=== PATIENT | female | born 1965 | race Caucasian/White ===

== ENCOUNTER 2017-05-30 12:08 | Emergency (ER) | payer OTHER ==
[~2017-05-30] VITALS: Ht 167.6 cm; Wt 92.8 kg
[~2017-05-30 12:08] MED LIST: AMOX875T3 PO; ASPCH81X PO; CITA40TA4 PO; CLR10 PO; FLUT0.0529 NAE; INSDGI SC; INSUINJ14 SC; LEVO137T3 PO; LISI-729 PO; METF-384 PO; MONT1TAB5 PO; POLY3350 PO
[2017-05-30 12:12] VITALS: TEMP 36.7; Ht 167.6 cm; Wt 92.8 kg
[2017-05-30] MEDS ORDERED: INSDGIPEN SC (12:50)
[2017-05-30] MEDS ORDERED: NVLGI/PEN SC (12:50)
--- NOTE | 2017-05-30 12:57 | DIAGNOSTIC IMAGING REPORT ---
HEAD WITHOUT CONTRAST (CT) CLINICAL HISTORY: 52 years-old Female presenting with headaches, nose bleed, pt concern for mass d/t family hx. TECHNIQUE: Multidetector CT imaging of the head was performed without the use of intravenous contrast. IV contrast: None. A dose lowering technique was used consistent with the principles of ALARA (as low as reasonably achievable). COMPARISON: 04/19/2015. CT DOSE (mGy.cm): The estimated cumulative dose is 537.48 mGy.cm. 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 Ventricles and sulci normal in size. Focal hypoattenuation at the left frontal horn, unchanged from prior and likely chronic small vessel ischemic change. No mass effect or midline shift. No hemorrhage or acute territorial infarct. No extra-axial fluid collection. Paranasal sinuses and mastoid air cells clear. Calvarium intact. IMPRESSION: 1. No acute intracranial pathology. Electronically signed by: Herb El M.D. 05/30/2017 12:55 PM Dictated Date/Time: 05/30/2017 12:53 PM
--- NOTE | 2017-05-30 13:33 | EMERGENCY ROOM VISIT NOTE ---
History First contact with patient: 12:16 Chief Complaint: NOSE BLEED (MINOR) Stated Complaint: SEVERE NOSEBLEED W/BLOOD CLOT History of Present Illness The patient is a 52 year old female who presents to the Emergency Room with complaints of a nosebleed which resolved prior to arrival. The patient states that she was at work today and developed bleeding from the right nostril. She tilted her head back and the bleeding resolved, but she does state that she swallowed a blood clot. She denies any history of nosebleeds. She does not take any blood thinners. She denies any recent trauma to the nose. She does report she has seasonal allergies. The patient is concerned because her brother recently due to brain cancer and she is concerned that this nosebleed may be indicative of a brain tumor. Review of Systems A complete 10 point review of systems was reviewed with the patient with pertinent positives and negatives as per history of present illness. All else were negative. Past Medical/Surgical History Medical Problems: (1) Chronic Sinusitis Nos (2) Concussion (3) Diab Kelle Wo Compl, Type Ii Or Unspec Type, Not Uncntrld (4) Hx-Antibiot Allergy Nec (5) Hypothyroidism Nos (6) Pure Hypercholesterolem Family History FHx: diabetes mellitus Social History Smoking Status: Never Smoker Current/Historical Medications Scheduled Aspirin (Aspirin Chewable), 81 MG PO DAILY Citalopram (Citalopram Hydrobromide), 40 MG PO DAILY Insulin Aspart (Novolog Flexpen), 1 DOSE SC UD Insulin Glargine (Lantus Solostar), 46 UNITS SC QAM Levothyroxine Sodium (Levothyroxine Sodium), 137 MCG PO DAILY Lisinopril (Zestril), 5 MG PO DAILY Metformin Hcl (Glucophage), 1,000 MG PO BIDM Montelukast Sodium (Montelukast Sodium), 10 MG PO DAILY Physical Exam Vital Signs Date Time Temp Pulse Resp B/P (MAP) Pulse Ox O2 Delivery O2 Flow Rate FiO2 05/30/17 13:46 85 16 140/90 97 05/30/17 12:12 36.7 70 20 146/87 97 Room Air Physical Exam VITALS: Vitals are noted on the nurse's note and reviewed by myself. Vital signs stable. GENERAL: This is a 52-year-old female, in no acute distress, nondiaphoretic, well-developed well-nourished. SKIN: The skin was without rashes. HEAD: Normocephalic atraumatic. EARS: External auditory canals clear, tympanic membranes pearly lopez without erythema or effusion bilaterally. EYES: Pupils equal round and reactive to light and accommodation. Extraocular movements intact. NOSE: The nasal mucosa of the right nostril is slightly friable and erythematous. There is no active bleeding. MOUTH: Mucous membranes moist. No blood in the posterior oropharynx. NECK: Supple without nuchal rigidity. No lymphadenopathy. HEART: Regular rate and rhythm without murmurs gallops or rubs. LUNGS: Clear to auscultation bilaterally without wheezes, rales or rhonchi. NEURO: Patient was alert and oriented to person place and time. Medical Decision & Procedures ER Provider Diagnostic Interpretation: HEAD WITHOUT CONTRAST (CT) CLINICAL HISTORY: 52 years-old Female presenting with headaches, nose bleed, pt concern for mass d/t family hx. TECHNIQUE: Multidetector CT imaging of the head was performed without the use of intravenous contrast. IV contrast: None. A dose lowering technique was used consistent with the principles of ALARA (as low as reasonably achievable). COMPARISON: 04/19/2015. CT DOSE (mGy.cm): The estimated cumulative dose is 537.48 mGy.cm. 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 Ventricles and sulci normal in size. Focal hypoattenuation at the left frontal horn, unchanged from prior and likely chronic small vessel ischemic change. No mass effect or midline shift. No hemorrhage or acute territorial infarct. No extra-axial fluid collection. Paranasal sinuses and mastoid air cells clear. Calvarium intact. IMPRESSION: 1. No acute intracranial pathology. Medical Decision Differential diagnosis includes anterior epistaxis, posterior epistaxis, thrombocytopenia, malignancy, among others. The patient was evaluated as above. She presents with resolved epistaxis. The patient was very concerned that she could possibly have a brain tumor due to her family history of brain cancer. I did not feel this was likely given the patient's presentation, however I did discuss benefit/risk of performing a CT scan with the patient and she preferred to have a CT scan to make sure there were no brain masses. Noncontrast CT of the head was performed and read by radiology with no acute findings. Patient was reassured. I discussed using saline sprays and humidifier to prevent nosebleeds. She was encouraged to follow-up with her primary care provider. She verbalized understanding of my assessment and treatment plan and was discharged home in good condition. Medication Reconcilliation Current Medication List: was personally reviewed by me Blood Pressure Screening Patient's blood pressure: Elevated blood pressure Blood pressure disposition: Elevated BP felt to be situational Impression Primary Impression: Epistaxis Departure Information Dispostion Home / Self-Care Condition GOOD Referrals Mathew Ayon M.D. (PCP) Patient Instructions ED Nosebleed, My [facility] Additional Instructions You have been treated in the Emergency Department today for your Nose Bleed ( Epistaxis). Do NOT blow your nose for the next few days. This can result in recurrence of your nosebleed. You should consider using a humidifier to help moisten the air and decrease instances of nosebleeds. You can use [id number] saline nasal sprays to help moisten the nasal mucosa and decrease instances of nosebleeds. You may also apply Vaseline to the inside of the nostril to help moisten the mucosa. If you have another nosebleed, use 2 squirts of Afrin in the nostril then applied a nasal clip for at least 15 minutes. If your nosebleed persists, come to the emergency department. As with any trip to the Emergency Department, you should follow-up with your Primary Care Provider from today's visit. Return to the emergency department if your symptoms persist despite treatment plan outlined above or if the following symptoms occur: uncontrollable nosebleed , dizziness, lightheadedness, pre-syncope, or re-bleed.
[2017-05-30 13:46] VITALS: BP 140/90; PULSE 85; O2SAT 97
== END 2017-05-30 13:47 | disposition home or self-care (01) ==
LOC: C.EDB 12:09 → C.EDD 13:47
DX: R04.0 Epistaxis (principal); Z80.9 Family history of malignant neoplasm, unspecified; E11.9 Type 2 diabetes mellitus without complications; E03.9 Hypothyroidism, unspecified; E78.00 Pure hypercholesterolemia, unspecified; Z83.3 Family history of diabetes mellitus; Z79.82 Long term (current) use of aspirin; Z79.4 Long term (current) use of insulin; Z79.899 Other long term (current) drug therapy

== ENCOUNTER 2017-06-27 21:23 | Emergency (ER) | payer OTHER ==
[~2017-06-27] VITALS: Ht 167.6 cm; Wt 94.3 kg
[~2017-06-27 21:23] MED LIST changes: -AMOX875T3 PO; -CLR10 PO; -FLUT0.0529 NAE; -INSDGI SC; +INSDGIPEN SC; -INSUINJ14 SC; +NVLGI/PEN SC; -POLY3350 PO
[2017-06-27 21:28] VITALS: Ht 167.6 cm; Wt 94.3 kg
[2017-06-27] MEDS ORDERED: MULT-215 PO (21:48)
[2017-06-27] MEDS ORDERED: TURM500T PO (21:48)
[2017-06-27] MEDS ORDERED: OMEG10007 PO (21:48)
--- NOTE | 2017-06-27 22:18 | DIAGNOSTIC IMAGING REPORT ---
L SHOULDER MIN 2 VIEWS ROUTINE CLINICAL HISTORY: Left shoulder pain x3 weeks. COMPARISON: None FINDINGS: Alignment of the left shoulder is anatomic. No acute fracture or suspicious osseous lesion is present. There is deformity of the distal left clavicle which suggests an old, healed fracture. Minimal osteoarthritis of the left acromioclavicular joint is present. IMPRESSION: 1. No acute fracture or dislocation of the left shoulder. 2. Mild osteoarthritis of the left acromioclavicular joint. Electronically signed by: Cory Lo M.D. 06/27/2017 10:17 PM Dictated Date/Time: 06/27/2017 10:16 PM
[2017-06-27] MEDS ORDERED: DIPHTHERIA/TETANUS/PERTUSSIS 0.5 ML SYR/VIAL IM. ONE (23:00)
[2017-06-27] MEDS ORDERED: PRED20TA2 PO (23:07)
[2017-06-27 23:09] VITALS: BP 144/88; PULSE 68; TEMP 36.8; O2SAT 97
--- NOTE | 2017-06-29 01:51 | EMERGENCY ROOM VISIT NOTE ---
ED Visit Note First contact with patient: 21:55 Chief Complaint: My left shoulder hurts. History of Present Illness: Ms. Major is a 52-year-old white female who ambulates into the ED complaining of left lateral shoulder pain. Patient reports she has been having ongoing left lateral shoulder pain for the last 3 weeks. Because of her work schedule she has not been able to seen by her primary care provider. Currently patient reports that when she is lifting objects or carrying objects she develops left shoulder pain. She describes her pain as a burning sensation with sometimes achy. She rates her discomfort 7/10. Her pain is nonradiating. Occasionally her pain worsens with palpation. She has had mild relief with ibuprofen. She denies any associated symptoms including headache, dizziness, lightheadedness, neck pain, thoracic back pain, left upper extremity weakness/ numbness/tingling. Review of Systems: As noted above in history of present illness. Past Medical History: Diabetes, hypertension, sinusitis, hypothyroidism, hypercholesterolemia, seasonal allergies. Current Medications: Medications Dose Route/Sig Max Daily Dose Days Date Category Dose Instructions Ararat-3 (Fish Oil) 1 Ea Cap 1 Cap PO QPM 06/27/17 Reported Stress B Complex/Iron (Multiple Vitamins W/ Iron) 1 Tab Tab 0.5 Tab PO QAM 06/27/17 Reported Turmeric (Turmeric (Curcuma Longa)) 500 Mg Tab 500 Mg PO QPM 06/27/17 Reported Lantus Solostar (Insulin Glargine) 100 Unit/Ml Inj 46 Units SC QAM 05/30/17 Reported Novolog Flexpen (Insulin Aspart) 100 Units/Ml Inj 1 Dose SC UD 05/30/17 Reported CARB RATIO 1:10 BREAKFAST, 1:8 LUNCH, 1:8 JOHN MEAL AND CF 1:40 OVER 140. Aspirin Chewable (Aspirin) 81 Mg Chew 81 Mg PO QPM 04/19/15 Reported Montelukast Sodium 10 Mg Tab 10 Mg PO QPM 30 04/19/15 Reported Zestril (Lisinopril) 5 Mg Tab 5 Mg PO QPM 04/19/15 Reported Glucophage (Metformin Hcl) 1,000 Mg Tab 1,000 Mg PO BIDM 04/19/15 Reported Citalopram Hydrobromide (Citalopram) 40 Mg Tab 40 Mg PO QPM 90 8/3/15 Reported Levothyroxine Sodium 137 Mcg Tab 137 Mcg PO QAM 30 04/19/15 Reported Allergies to Medications: Cefixime, cephalosporins, hydrocodone, sulfa, tetracycline, trimethoprim. Social History: Patient is currently employed; she feels safe in her home environment; she denies tobacco or alcohol use. Physical Examination: Vital Signs: Date Time Temp Pulse Resp B/P (MAP) Pulse Ox O2 Delivery O2 Flow Rate FiO2 06/27/17 23:09 36.8 68 18 144/88 97 06/27/17 22:28 36.8 67 18 143/91 98 Room Air 06/27/17 21:28 36.5 80 20 145/95 98 Room Air GENERAL: 52-year-old female in mild distress due to pain, nontoxic-appearing, afebrile and hemodynamically stable. NEUROLOGICAL: Awake, alert and oriented to person, place and time. Answering questions appropriately and following commands. Normal gait. Good hand eye coordination. No focal motor sensory deficits. SKIN: Warm, dry and pink. No soft tissue eruptions or trauma noted. HEENT: Atraumatic and normocephalic. BACK: No tenderness over the bony cervical and thoracic spine. No CVA tenderness. THORAX: Lungs sounds are clear to auscultation and equal bilaterally with symmetrical chest wall. LEFT UPPER EXTREMITY: No gross bony deformity. No tenderness over the clavicle , acromioclavicular joint, scapula. There is moderate tenderness over the lateral aspect of the deltoid muscle over the deltoid tuberosity which is associated with mild swelling but no erythema. This area does not feel hot. During my exam patient acknowledged pain over the olecranon process. She does report this is been mild the swollen for the last couple days and slightly red but most of the redness and swelling has resolved. She does report it is cat tender. She denies any trauma to this area. On palpation there is mild tenderness over the olecranon process but there is full range of motion of the shoulder. There is no bony deformity, bony crepitus, swelling or ecchymosis. 5 /5 muscle strength in flexion, extension, abduction, abduction, horizontal extension, horizontal flexion and rotation of the arm against resistance. Distal reflexes, sensation and pulses were intact. Capillary refill is brisk throughout the extremity. Full range of motion of the shoulder joint and curdled. RIGHT HAND: Patient has a superficial abrasion over the posterior aspect of the first metacarpal. There is no tenderness, signs of infection or drainage from the wound or lymphangitis. Full range of motion of the thumb without difficulty. Neurovascular statuses are intact. ED Course: Patient is assessed as noted above. Patient's medication list was reviewed. Left Shoulder X-Rays: Was read by myself and the radiologist showing no acute fractures or dislocations. Radiologist notes previous deformity to the distal clavicle suggesting all, he'll fracture and mild osteoarthritis of the left acromioclavicular joint. Patient was given ice for pain and comfort. Additionally she received 60 mg of prednisone. Patient's left arm was placed in a shoulder splint for rest. Just prior to discharge patient reports she sustained an abrasion to the right thumb last week and expresses concern because her tetanus is not up-to-date; she was given an Adacel booster. Patient was educated about today's findings and instructed on her treatment plan ; she verbalized understanding and agreement with this plan. Clinical Impression: Left shoulder pain. Left elbow pain. Right thumb abrasion. Decision-Making: Initially my differential diagnosis I considered bursitis, tendinitis, muscle strain, rotator cuff injury, early contusion and other causes. Disposition: A shunt discharged home in stable condition; prior to departure she was reassessed and subjectively reported she was feeling better and rated her discomfort 4/10. Plan: Patient was encouraged to continue her current medications. Patient was prescribed prednisone 60 mg once a day for 4 additional days. Patient was encouraged to use acetaminophen 650 mg every 6 hours. Patient was encouraged use ice on areas of pain. Patient was educated on wound care instructions and signs of infection. Patient is encouraged to follow-up with family physician for recheck or signs of infection. Patient was encouraged return ED for worsening pain, left upper extremity weakness/numbness/tingling, any signs of infection or any new/concerning symptoms.
== END 2017-06-27 23:10 | disposition home or self-care (01) ==
LOC: C.EDB 21:24 → C.EDD 23:10
DX: M25.511 Pain in right shoulder (principal); M25.522 Pain in left elbow; S60.311A Abrasion of right thumb, initial encounter; X58.XXXA Exposure to other specified factors, initial encounter; Z23 Encounter for immunization; E11.9 Type 2 diabetes mellitus without complications; I10 Essential (primary) hypertension; E78.00 Pure hypercholesterolemia, unspecified; E03.9 Hypothyroidism, unspecified; Z88.2 Allergy status to sulfonamides; Z88.8 Allergy status to other drugs, medicaments and biological substances; Z79.82 Long term (current) use of aspirin; Z79.84 Long term (current) use of oral hypoglycemic drugs; Z79.899 Other long term (current) drug therapy